=== PATIENT | male | born 1935 | race Caucasian/White ===

== ENCOUNTER 2016-10-23 22:44 | Emergency (ER) | payer OTHER ==
[~2016-10-23] VITALS: Ht 175.3 cm; Wt 68.9 kg
[2016-10-23 23:02] LABS: BASO % 0 % (0-3); EOS % 1 % (0-3); HEMOGLOBIN 14.8 g/dL (13.0-17.5); LYMPH # 0.9 x10^3/uL (1.0-4.8); LYMPH % 8 % (24-48); MEAN CORPUSCULAR HEMOGLOBIN 29 pg (25-35); MEAN CORPUSCULAR HGB CONC 33 g/dL (31-37); MEAN CORPUSCULAR VOLUME 89 fL (79-100); MONO % 6 % (0-9); NEUT % 85 % (31-73); PLATELET COUNT 138 x10^3/uL (140-400); RED BLOOD COUNT 5.08 x10^6/uL (4.30-5.70); RED CELL DISTRIBUTION WIDTH 12.6 % (11.5-14.5); WHITE BLOOD COUNT 10.8 x10^3/uL (4.0-11.0)
[2016-10-23 23:08] LABS: CALCIUM 9.1 mg/dL (8.5-10.1); CREATININE 0.9 mg/dL (0.7-1.3); GFR 80.6; POTASSIUM 3.8 mmol/L (3.5-5.1)
[2016-10-23 23:14] LABS: ALBUMIN/GLOBULIN RATIO 1.2 (1.0-1.7); TOTAL BILIRUBIN 0.6 mg/dL (0.2-1.0); TOTAL PROTEIN 7.4 g/dL (6.4-8.2)
--- NOTE | 2016-10-23 23:16 | PHYS DOC ---
Past Medical History Past Medical History: Diabetes-Type II, Other Additional Past Medical Histor: GASTRITIS Past Surgical History: Other Additional Past Surgical Histo: CATARACT, LEFT KNEE-ACL Alcohol Use: None Drug Use: None Adult General Chief Complaint Chief Complaint: NAUSEA/VOMITING/DIARRHA HPI HPI 81-year-old male who's having ongoing nausea and vomiting in which he states he' s had 8 episodes of vomiting and 3 episodes of loose stool that all started around 8:30 PM presents by EMS for ongoing flulike illness. He denies any abdominal pain. He denies any chest pain or shortness of breath. He denies any history of significant health problems and he denies any cardiac disease. He states his lives at [facility] and there has been a lot of influenza going on that facility and he is concerned that he is now having influenza himself. Patient is speaking in complete sentences and in no acute distress at this time. Patient was given a dose of Zofran by EMS prior to arrival and states his nausea has improved. Review of Systems Review of Systems Constitutional: Denies fever or chills [] Eyes: Denies change in visual acuity, redness, or eye pain [] HENT: Denies nasal congestion or sore throat [] Respiratory: Denies cough or shortness of breath [] Cardiovascular: No additional information not addressed in HPI [] GI: Denies abdominal pain, has nausea, has vomiting, denies bloody stools, has diarrhea [] : Denies dysuria or hematuria [] Musculoskeletal: Denies back pain or joint pain [] Integument: Denies rash or skin lesions [] Neurologic: Denies headache, focal weakness or sensory changes [] Endocrine: Denies polyuria or polydipsia [] Current Medications Current Medications Current Medications Medications (Trade) Dose Ordered Sig/Alexandrea Start Time Stop Time Status Last Admin Dose Admin Sodium Chloride (Iv Sodium Chloride 0.9% 500ml Bag) 500 ml @ 500 mls/hr 1X ONCE 10/24/16 01:00 10/24/16 01:59 10/24/16 01:00 500 MLS/HR Allergies Allergies Allergies Coded Allergies Type Severity Reaction Last Updated Verified morphine Allergy Intermediate 10/23/16 Yes Physical Exam Physical Exam Constitutional: Well developed, well nourished, no acute distress, non-toxic appearance. [] HENT: Normocephalic, atraumatic, bilateral external ears normal, oropharynx moist, no oral exudates, nose normal. [] Eyes: PERRLA, EOMI, conjunctiva normal, no discharge. [] Neck: Normal range of motion, no tenderness, supple, no stridor. [] Cardiovascular:Heart rate tachycardic with regular rhythm, no murmur [] Lungs & Thorax: Bilateral breath sounds clear to auscultation [] Abdomen: Bowel sounds normal, soft, no tenderness, no masses, no pulsatile masses. [] Skin: Warm, dry, no erythema, no rash. [] Back: No tenderness, no CVA tenderness. [] Extremities: No tenderness, no cyanosis, no clubbing, ROM intact, no edema. [] Neurologic: Alert and oriented X 3, normal motor function, normal sensory function, no focal deficits noted. [] Psychologic: Affect normal, judgement normal, mood normal. [] Current Patient Data Vital Signs Vital Signs Date Time Temp Pulse Resp B/P Pulse Ox O2 Delivery O2 Flow Rate FiO2 10/23/16 23:24 104 16 156/72 97 Room Air 10/23/16 22:59 99.4 99.4 Lab Values Laboratory Tests Test 10/23/16 22:53 10/23/16 23:25 10/23/16 23:45 White Blood Count 10.8x10^3/uL (4.0-11.0) Red Blood Count 5.08x10^6/uL (4.30-5.70) Hemoglobin 14.8g/dL (13.0-17.5) Hematocrit 45.0% (39.0-53.0) Mean Corpuscular Volume 89fL (79-100) Mean Corpuscular Hemoglobin 29pg (25-35) Mean Corpuscular Hemoglobin Concent 33g/dL (31-37) Red Cell Distribution Width 12.6% (11.5-14.5) Platelet Count 138x10^3/uL (140-400) L Neutrophils (%) (Auto) 85% (31-73) H Lymphocytes (%) (Auto) 8% (24-48) L Monocytes (%) (Auto) 6% (0-9) Eosinophils (%) (Auto) 1% (0-3) Basophils (%) (Auto) 0% (0-3) Neutrophils # (Auto) 9.2x10^3uL (1.8-7.7) H Lymphocytes # (Auto) 0.9x10^3/uL (1.0-4.8) L Monocytes # (Auto) 0.6x10^3/uL (0.0-1.1) Eosinophils # (Auto) 0.1x10^3/uL (0.0-0.7) Basophils # (Auto) 0.0x10^3/uL (0.0-0.2) Segmented Neutrophils % 67% (35-66) H Band Neutrophils % 26% (0-9) H Lymphocytes % 6% (24-48) L Monocytes % 1% (0-10) Toxic Granulation Slight Toxic Vacuolation Slight Platelet Estimate Adequate (ADEQUATE) Sodium Level 142mmol/L (136-145) Potassium Level 3.8mmol/L (3.5-5.1) Chloride Level 103mmol/L (98-107) Carbon Dioxide Level 30mmol/L (21-32) Anion Gap 9 (6-14) Blood Urea Nitrogen 19mg/dL (8-26) Creatinine 0.9mg/dL (0.7-1.3) Estimated GFR (Cockcroft-Gault) 80.6 BUN/Creatinine Ratio 21 (6-20) H Glucose Level 181mg/dL (70-99) H Calcium Level 9.1mg/dL (8.5-10.1) Total Bilirubin 0.6mg/dL (0.2-1.0) Aspartate Amino Transferase (AST) 20U/L (15-37) Alanine Aminotransferase (ALT) 29U/L (16-63) Alkaline Phosphatase 69U/L (46-116) Total Protein 7.4g/dL (6.4-8.2) Albumin 4.0g/dL (3.4-5.0) Albumin/Globulin Ratio 1.2 (1.0-1.7) Lipase 334U/L (73-393) Influenza Type A Antigen Negative (NEGATIVE) Influenza Type B Antigen Negative (NEGATIVE) Urine Collection Type Unknown Urine Color Yellow Urine Clarity Clear Urine pH 5.5 Urine Specific [place] >=1.030 Urine Protein Negativemg/dL (NEG-TRACE) Urine Glucose (UA) Negativemg/dL (NEG) Urine Ketones (Stick) 40mg/dL (NEG) Urine Blood Negative (NEG) Urine Nitrite Negative (NEG) Urine Bilirubin Negative (NEG) Urine Urobilinogen Dipstick 0.2mg/dL (0.2 mg/dL) Urine Leukocyte Esterase Negative (NEG) Urine RBC 0/HPF (0-2) Urine WBC 5-10/HPF (0-4) Urine Squamous Epithelial Cells Occ/LPF Urine Amorphous Sediment Present/HPF Urine Bacteria Few/HPF (0-FEW) Urine Mucus Marked/LPF Laboratory Tests 10/23/16 22:53 Laboratory Tests 10/23/16 22:53 EKG EKG EKG as interpreted by me shows a sinus tachycardia with a rate of 108 bpm. Intervals are normal. There is no ectopy. There are no obvious ischemic findings seen. This EKG does not meet STEMI criteria. Radiology/Procedures Radiology/Procedures [] Course & Med Decision Making Course & Med Decision Making Pertinent Labs and Imaging studies reviewed. (See chart for details) 81-year-old male with ongoing flulike illness with nausea, vomiting, and diarrhea will be given a fluid bolus and will have a full laboratory workup including an influenza panel. Patient will be given IV fluids until his tachycardia resolves. Return workup is unremarkable. His tachycardia resolved after a liter and a half of fluid. Patient feels symptomatically much better and states he will be very good about fluid hydration at home and will receive close follow-up. I gave him strict instruction return if he developed any worsening of his nausea or vomiting. A prescription for Zofran will be provided with instruction continue to drink fluids judiciously at home. Dragon Disclaimer Dragon Disclaimer This electronic medical record was generated, in whole or in part, using a voice recognition dictation system. Departure Departure Impression: Primary Impression: Nausea & vomiting Additional Impression: Diarrhea Disposition: HOME, SELF-CARE Admitting Physician: Other Condition: STABLE Patient Instructions: Diarrhea, Nausea and Vomiting, [id number] Additional Instructions: Please continue to drink plenty of fluids and stay hydrated at home. Follow up with your primary doctor in the next 2-3 days for your symptoms. Take zofran as needed for any nausea. Scripts Ondansetron Hcl (Zofran)4 Mg Tablet4 Mg PO BID PRN NAUSEA/VOMITING #10 TAB Prov:JADE LALA DO 10/24/16 Problem Qualifiers JADE LALA DO Oct 23, 2016 23:16
[2016-10-23 23:20] LABS: PLT ESTIMATE ADEQUATE (ADEQUATE)
[2016-10-23 23:25] LABS: TOXIC GRANULATION SLIGHT; TOXIC VACUOLATION SLIGHT
[2016-10-23] MEDS ORDERED: IV NORMAL SALINE 1000ML BAG 1,000 ML IV ONE (23:30)
[2016-10-23 23:52] LABS: BILIRUBIN,URINE NEGATIVE (NEG); GLUCOSE,URINE NEGATIVE (NEG); NITRITE,URINE NEGATIVE (NEG); PH,URINE 5.5; PROTEIN,URINE NEGATIVE (NEG-TRACE); UROBILINOGEN,URINE 0.2 mg/dL (0.2 mg/dL)
[2016-10-23 23:56] LABS: BACTERIA,URINE FEW /HPF (0-FEW); RBC,URINE 0 /HPF (0-2); SQUAMOUS EPITHELIAL CELL,UR OCC /LPF
[2016-10-24 00:27] LABS: OBC FLU VALID
[2016-10-24 00:54] VITALS: BP 158/74
[2016-10-24] MEDS ORDERED: IV NORMAL SALINE 500ML BAG 500 ML IV ONE (01:00)
[2016-10-24] MEDS ORDERED: ONDA4TAB7 PO ×2 (01:24→01:27)
--- NOTE | 2016-10-24 01:26 | ACF ---
Admission Forms Criteria VOMITING Clinical Indications for Admission to Inpatient Care ( Place 'X' for any and all applicable criteria): Admission is indicated for ANY ONE of the following(1)(2)(3): [ ]I. Inpatient admission required rather than observation care because of ANY ONE of the following: [ ]i) Hemodynamic instability that is severe or persistent [ ]ii) Vomiting that is severe or persistent [ ]iii) Severe electrolyte abnormalities requiring inpatient care [ ]iv) Severe pain requiring acute inpatient management [ ]v) High fever or infection requiring inpatient admission as indicated by ANY ONE of the following(7)(8): [ ]1) Appropriate outpatient or observation care antimicrobial treatment unavailable, not effective, or not feasible [ ]2) Documented bacteremia [ ]3) Temp >104.9 degrees F (40.5 degrees C) (oral) [ ]4) Temp >103.1 degrees F (39.5 C) (oral) or <96.8 degrees F (36 C) (rectal) that does not respond to all emergency treatment measures [ ]vi) Acute renal failure [ ]vii) IV fluid to replace significant ongoing losses (greater than 3 L/m2 per day) [ ]viii) Parenteral nutrition regimen that must be implemented on inpatient basis [ ]ix) Other condition, treatment or monitoring requiring inpatient admission [ ]II. Complete or partial gastrointestinal obstruction [ ]III. Other cause of vomiting requiring hospitalization (eg, poisoning, increased intracranial pressure) [ ]IV. Vomiting due to significant metabolic derangement (eg, severe hypercalcemia, diabetic ketoacidosis) Extended stay beyond goal length of stay may be needed for(1)(4): [ ]a) Severe vomiting [ ]b) Persistent vomiting, vital sign changes, severe electrolyte imbalance , or diagnosed cause of vomiting that requires continued hospitalization (eg, gastrointestinal obstruction , increased intracranial pressure) [ ]c) Surgery to treat identified causes of vomiting (eg, bowel obstruction , intracranial process) [ ]d) Comorbid illness that requires inpatient care (eg, acute heart failure , renal failure) [ ]e) Need for inpatient endoscopy The original [facility] content created by [employer] has been revised. The portions of the content which have been revised are identified through the use of italic text or in bold, and [facility] has neither reviewed nor approved the modified material. All other unmodified content is copyright [facility]. Please see references footnoted in the original [facility] edition 2016 JAMAAL JENSEN Oct 24, 2016 01:26
--- NOTE | 2016-10-24 06:23 | EKG ---
[facility] [address] [place] [address] Test Date: 2016-10-23 Test Time: 23:03:54 Pat Name: ELIESER DIAZ Department: Room: Gender: M Candy Feeder: : 1935 Requested By: JADE LALA Order Number: [id number] Reading MD: Ronald Alvarez Measurements Intervals [place] Rate: 108 P: 47 LA: 180 QRS: -14 QRSD: 76 T: 42 QT: 316 QTc: 427 Interpretive Statements SINUS TACHYCARDIA Electronically Signed On 10-25-2016 10:05:11 CDT by Ronald Alvarez
== END 2016-10-24 01:40 | disposition home or self-care (01) ==
LOC: ER 22:44
DX: R11.2 Nausea with vomiting, unspecified (principal); R19.7 Diarrhea, unspecified; R00.0 Tachycardia, unspecified; E11.9 Type 2 diabetes mellitus without complications; Z88.5 Allergy status to narcotic agent
CPT/HCPCS: 36415; 80053; 81001; 83690; 85007; 85027; 87086; 87804; 93005; 96360; 96361; 99285; J7030; J7040

== ENCOUNTER 2017-06-16 14:59 | Emergency (ER) | payer OTHER ==
[~2017-06-16] VITALS: Ht 175.3 cm; Wt 69.9 kg
[~2017-06-16 14:59] MED LIST: ONDA4TAB7 PO
[2017-06-16 15:42] LABS: BILIRUBIN,URINE NEGATIVE (NEG); GLUCOSE,URINE >=1000 mg/dL (NEG); NITRITE,URINE NEGATIVE (NEG); PROTEIN,URINE NEGATIVE (NEG-TRACE); UROBILINOGEN,URINE 0.2 mg/dL (0.2 mg/dL)
[2017-06-16 15:57] LABS: BACTERIA,URINE 0 /HPF (0-FEW); RBC,URINE OCC /HPF (0-2); SQUAMOUS EPITHELIAL CELL,UR OCC /LPF; WBC,URINE OCC /HPF (0-4)
[2017-06-16 16:42] VITALS: BP 181/82
--- NOTE | 2017-06-16 16:42 | ED.ADGEN ---
Past Medical History Past Medical History: Diabetes-Type II, Other Additional Past Medical Histor: GASTRITIS Past Surgical History: Other Additional Past Surgical Histo: CATARACT, RIGHT KNEE-ACL Additional Information: quit smoking 35 years ago Alcohol Use: None Drug Use: None Adult General Chief Complaint Chief Complaint: PAIN CONTROL HPI HPI Patient is a 82 year old man, history of sciatica, for which he is seen by pain management at , he states that he receives by annual epidural injections , last injection was 8 months ago. Patient has history of 3 bulging disks per his report. Patient states that he is experiencing worsening pain consistent with his typical sciatica over the past several weeks. He states that he did contact his provider at , and was told that they could not fit him in until July 07. [facility] states [facility], for same symptoms, has been using Tylenol home without relief. He states that he can only sleep 1-2 hours at night due to the pain. He denies any weakness, numbness, tingling, chest pain, shortness of breath, abdominal pain, GI symptoms, urinary complaints. No injuries. No fevers or chills. He denies any change in his typical sciatic symptoms, states it is simply worse than usual. He states he is not taking any medication aside from Tylenol home this morning. No other interventions or complaints, no swelling extremities, no recent travel or surgery, no history of DVT or PE. Review of Systems Review of Systems Constitutional: Denies fever or chills. [] Eyes: Denies change in visual acuity. [] HENT: Denies nasal congestion or sore throat. [] Respiratory: Denies cough or shortness of breath. [] Cardiovascular: Denies chest pain or edema. [] GI: Denies abdominal pain, nausea, vomiting, bloody stools or diarrhea. [] : Denies dysuria. [] Musculoskeletal: Complaining of lumbar back pain, radiating into the right lower extremity, consistent with his sciatica. Integument: Denies rash. [] Neurologic: Denies headache, focal weakness or sensory changes. [] Endocrine: Denies polyuria or polydipsia. [] Lymphatic: Denies swollen glands. [] Psychiatric: Denies depression or anxiety. [] Current Medications Current Medications Current Medications Medications (Trade) Dose Ordered Sig/Alexandrea Start Time Stop Time Status Last Admin Dose Admin Diazepam (Valium) 5 mg 1X ONCE 06/16/17 17:00 06/16/17 17:01 DC 06/16/17 16:56 5 MG Ketorolac Tromethamine (Toradol) 30 mg 1X ONCE 06/16/17 17:00 06/16/17 17:01 DC 06/16/17 16:58 30 MG Lidocaine (Lidoderm) 1 patch 1X ONCE 06/16/17 17:00 06/16/17 17:01 DC 06/16/17 16:59 1 PATCH Allergies Allergies Allergies Coded Allergies Type Severity Reaction Last Updated Verified morphine Allergy Intermediate 10/23/16 Yes Physical Exam Physical Exam Constitutional: Well developed, well nourished, no acute distress, non-toxic appearance. [] HENT: Normocephalic, atraumatic, bilateral external ears normal, oropharynx moist, no oral exudates, nose normal. [] Eyes: PERRLA, EOMI, conjunctiva normal, no discharge. [] Neck: Normal range of motion, no tenderness, supple, no stridor. [] Cardiovascular:Heart rate regular rhythm, no murmur, S1, S2, no rubs or gallops. [] Lungs & Thorax: Bilateral breath sounds clear to auscultation , no wheezing, rhonchi, rales. No chest wall crepitus or tenderness.[] Abdomen: Bowel sounds normal, soft, no tenderness, no masses, no pulsatile masses. [] Skin: Warm, dry, no erythema, no rash. [] Back: No midline tenderness, step-offs or deformities, patient with tenderness palpation in the right paraspinal muscles of the lumbar region, with tenderness in the piriformis region and mild tissue spasm noted, patient with positive straight leg raise on the right,, no CVA tenderness. [] Extremities: No tenderness, no cyanosis, no clubbing, ROM intact, no edema. Negative Homans sign.[] Neurologic: Alert and oriented X 3, normal motor function, normal sensory function, no focal deficits noted. []5 out of 5 strength in all extremities, with normal sensation, patient ambulating without difficulty in the emergency department. Psychologic: Affect normal, judgement normal, mood normal. [] Current Patient Data Vital Signs Vital Signs Date Time Temp Pulse Resp B/P (MAP) Pulse Ox O2 Delivery O2 Flow Rate FiO2 06/16/17 16:42 84 18 96 06/16/17 15:17 98.2 Room Air 98.2 Lab Values Laboratory Tests Test 06/16/17 15:30 Urine Color Yellow Urine Clarity Clear Urine pH 6.0 Urine Specific [place] >=1.030 Urine Protein Negative mg/dL (NEG-TRACE) Urine Glucose (UA) >=1000 mg/dL (NEG) Urine Ketones (Stick) Negative mg/dL (NEG) Urine Blood Negative (NEG) Urine Nitrite Negative (NEG) Urine Bilirubin Negative (NEG) Urine Urobilinogen Dipstick 0.2 mg/dL (0.2 mg/dL) Urine Leukocyte Esterase Negative (NEG) Urine RBC Occ /HPF (0-2) Urine WBC Occ /HPF (0-4) Urine Squamous Epithelial Cells Occ /LPF Urine Bacteria 0 /HPF (0-FEW) EKG EKG Not indicated.[] Radiology/Procedures Radiology/Procedures Lumbar spine x-ray: Three-view: Patient noted to have mild degenerative changes , without evidence of acute fracture, significant volume loss, or other acutely concerning findings. As interpreted by me.[] Course & Med Decision Making Course & Med Decision Making Pertinent Labs and Imaging studies reviewed. (See chart for details) patient's examination and history is consistent with exacerbation of sciatica. Urinalysis reveals occasional RBCs and WBCs but no dary blood, no evidence of infection. As stated patient was ambulating with discomfort, without evidence of difficulty and has a normal neurologic examination. Patient did drive himself to the emergency department, discussed with patient that if he can arrange for a ride will be able to provide a muscle relaxer, i.e. Valium, and also Toradol in the ED. Patient is agreeable with this plan. 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 On reevaluation patient states that he is feeling much better , he is now ambulating without difficulty in the ED, states he is rated go home. Examination did not reveal any evidence of concerning findings, and with patient's improved symptoms, patient now has right the emergency department and is ready be discharged home. I did discuss with patient concerning symptoms that prompt return, he is to call his providers at on Monday to see if he was held for earlier follow-up, and to return to the ED if any new or concerning symptoms develop. Additionally patient was given prescription for naproxen and cyclobenzaprine, along with prescription precautions, instructions , with which he voiced understanding and agreement. Apolinar Disclaimer Apolinar Disclaimer This electronic medical record was generated, in whole or in part, using a voice recognition dictation system. Departure Impression: Primary Impression: Sciatica Disposition: 01 HOME, SELF-CARE Condition: IMPROVED Scripts Cyclobenzaprine Hcl (CYCLOBENZAPRINE HCL) 5 Mg Tablet 1 TAB PO PRN TID Y for MUSCLE SPASMS, #12 TAB Prov: BLAIR JUAREZ DO 06/16/17 Naproxen (NAPROXEN) 250 Mg Tablet 250 MG PO PRN BID Y for PAIN, #10 Prov: BLAIR JUAREZ DO 06/16/17 BLAIR JUAREZ DO Jun 16, 2017 16:42
[2017-06-16] MEDS ORDERED: LIDOCAINE (700MG/PATCH) PATCH. TD ONE (17:00)
[2017-06-16] MEDS ORDERED: KETOROLAC 30 MG/ML INJ. IM ONE (17:00)
[2017-06-16] MEDS ORDERED: CYCL10TA2 PO (17:55)
[2017-06-16] MEDS ORDERED: NAPR250T6 PO (17:55)
[2017-06-16] MEDS ORDERED: CYCL5TAB PO (17:57)
--- NOTE | 2017-06-17 09:02 | RAD ---
LUMBAR SPINE 2-3V History:lumbar pain Comparison: None Findings:3 views lumbar spine are submitted. There is more advanced degenerative disc disease at L2-3 and to a somewhat lesser degree at L3-4 with vacuum disc disease at these levels. There is very minimal posterior subluxation L3 relative to L4. Lumbar vertebral body stature is maintained. Impression: 1.There is degenerative disc disease L3-4 and L2-3. There is very minimal posterior subluxation L3 relative to L4.
== END 2017-06-16 17:55 | disposition home or self-care (01) ==
LOC: ER 14:59
DX: M54.41 Lumbago with sciatica, right side (principal); E11.9 Type 2 diabetes mellitus without complications; Z87.891 Personal history of nicotine dependence; Z88.5 Allergy status to narcotic agent
CPT/HCPCS: 72100; 81001; 96372; 99285; J1885; J3360